=== PATIENT | male | born 1930 ===

== ENCOUNTER 2019-11-18 05:20 | Day surgery (SDC) | payer OTHER ==
[~2019-11-18 05:20] MED LIST: AMLODIPINE-OLM1 EAC2 PO; Amlodipine PO; HUMULIN N100 UNIT/1; LOSARTAN-HCTZ1 EAC1 PO
== END 2019-11-18 13:20 | disposition home or self-care (01) ==
LOC: CIR.AMB 05:20 → ADM 07:45 → CIR.AMB 13:20
DX: R15.9 Full incontinence of feces (principal)
CPT/HCPCS: 64581; C1778

== ENCOUNTER 2019-12-02 06:00 | Day surgery (SDC) | payer OTHER ==
[~2019-12-02 06:00] MED LIST changes: +HORIZANT300 MG
== END 2019-12-02 13:50 | disposition home or self-care (01) ==
LOC: CIR.AMB 06:00 → EDBD 06:00 → CIR.AMB 09:00
DX: R15.9 Full incontinence of feces (principal)
CPT/HCPCS: 64590; C1767

== ENCOUNTER 2020-08-24 13:48 | Outpatient (CLI) | payer OTHER ==
[2020-08-29] MEDS ORDERED: TAMS0.4C PO (14:44)
== END 2020-08-24 15:00 | disposition home or self-care (01) ==
LOC: LAB 13:48
PROVIDERS: ATTEND Colon & Rectal Surgery
DX: Z20.828 Contact with and (suspected) exposure to other viral communicable diseases (principal); Z01.812 Encounter for preprocedural laboratory examination; K59.09 Other constipation; K62.5 Hemorrhage of anus and rectum; D59.8 Other acquired hemolytic anemias; Z11.59 Encounter for screening for other viral diseases

== ENCOUNTER 2020-08-31 06:51 | Day surgery (SDC) | payer OTHER ==
[~2020-08-31 06:51] MED LIST changes: +TAMS0.4C PO
== END 2020-08-31 12:50 | disposition home or self-care (01) ==
LOC: CIR.AMB 06:51
PROVIDERS: ATTEND Colon & Rectal Surgery
DX: T85.111A Breakdown (mechanical) of implanted electronic neurostimulator of peripheral nerve electrode (lead), initial encounter (principal); T85.732A Infection and inflammatory reaction due to implanted electronic neurostimulator of peripheral nerve, electrode (lead), initial encounter; R15.9 Full incontinence of feces
CPT/HCPCS: 64590; 64581; 95971; C1778; L8679